=== PATIENT | male | born 1995 | race Caucasian/White ===

== ENCOUNTER 2017-12-26 23:26 | Emergency (ER) | payer BC ==
[~2017-12-26] VITALS: Ht 170.2 cm; Wt 78.9 kg
[2017-12-26 23:31] VITALS: Ht 170.2 cm; Wt 78.9 kg
[2017-12-27 00:48] VITALS: BP 133/70
== END 2017-12-27 00:48 | disposition home or self-care (01) ==
LOC: ED 23:26
DX: K12.0 Recurrent oral aphthae (principal); J02.9 Acute pharyngitis, unspecified